=== PATIENT | male | born 1955 | race Two or more races ===

== ENCOUNTER 2025-02-08 07:00 | Inpatient (IN) | payer OTHER ==
[~2025-02-08] VITALS: Ht 170.2 cm; Wt 81.6 kg
[2025-02-08] MEDS ORDERED: JARDIANCE25 MG PO (08:13)
[2025-02-08] MEDS ORDERED: GLIMEPIRIDE4 M1 PO (08:14)
[2025-02-08] MEDS ORDERED: METFORMIN HCL500 M3 PO (08:14)
[2025-02-08] MEDS ORDERED: ENALAPRIL MALEAT5 MG PO (08:14)
[2025-02-08] MEDS ORDERED: ROSUVASTATIN CA20 MG PO (08:14)
[2025-02-08 08:34] VITALS: BP 144/77
[2025-02-08 08:39] LABS: URINE APPEARANCE Clear; URINE BILIRRUBIN Negative (NEGATIVE); URINE BLOOD Negative; URINE COLOR Yellow; URINE KETONE Negative (NEGATIVE); URINE LEUKOCYTE Negative; URINE NITRATE Negative; URINE PROTEIN Negative (NEGATIVE); URINE UROBILINOGEN 0.2 E.U./dl
[2025-02-08 08:40] LABS: BASO % 0.7 % (0.1-1.2); EOS # 0.17 (0.04-0.54); EOS % 3.0 % (0.7-7.0); LYMPH # 2.02 (1.18-3.74); LYMPH % 35.6 % (19.3-53.1); MEAN PLATELET VOLUME 9.00 fl (9.4-12.4); MONO # 0.61 (0.24-0.82); MONO % 10.8 % (4.7-12.5); NEUT # 2.82 (1.56-6.13); NEUT % 49.7 % (34.0-71.1); RED CELL DISTRIBUTION WIDTH 13.4 % (11.6-14.4)
[2025-02-08 08:43] LABS: URINE BACTERIA 8.3 uL (0.0-1933); URINE EPITHELIAL CELLS 3.3 uL (0.0-38.8); URINE WBC 2.1 uL (0.0-23.2)
[2025-02-08 09:01] LABS: URINE CAST 0.29 uL (0.0-1.40); URINE GLUCOSE >=1000 MG/DL (NEGATIVE); URINE RBC 1.0 uL (0.0-20.8)
[2025-02-08 09:27] LABS: INR 0.98
[2025-02-08 09:30] LABS: ALT/SGPT 22.0 U/L (12-78); AST/SGOT 17.0 U/L (15-37); BILIRUBIN TOTAL 0.82 mg/dL (0.3-1.2); BUN CREA RATIO 17.0 (7.0-25.0); CREATININE SERUM 0.84 mg/dL (0.70-1.30); GFR 90.33; GLOBULINA 2.9 G/DL (2.4-3.5); GLUCOSE FASTING 113.0 mg/dL (65-100); OSMOLALITY SERUM 283.0 MOSM/KG (275-295)
[2025-02-10] MEDS ORDERED: CEFAZOLIN SODIUM 1,000 MG VIAL ONE (06:52)
[2025-02-10] MEDS ORDERED: METRONIDAZOLE/SODIUM CHLORIDE 500 MG/100 ML PIGGYBACK IV ONE ×2 (06:53→08:45)
[2025-02-10] MEDS ORDERED: SUGAMMADEX SODIUM 200 MG/2 ML VIAL IV ONE (08:42)
[2025-02-10] MEDS ORDERED: CEFAZOLIN SODIUM 1,000 MG VIAL IV ONE (08:45)
[2025-02-10] MEDS ORDERED: ENOXAPARIN SODIUM 40 MG/0.4 ML SYRINGE SUBCUTANEO SCH (09:38)
[2025-02-10] MEDS ORDERED: ACETAMINOPHEN 500 MG GEL..CAP PO SCH (09:39)
[2025-02-10] MEDS ORDERED: MORPHINE SULFATE 4 MG/ML CARTRIDGE IV PRN (09:45)
[2025-02-10] MEDS ORDERED: MORPHINE SULFATE 4 MG/ML VIAL IV ONE (11:30)
[2025-02-10 12:30] VITALS: BP 114/66; O2SAT 94
[2025-02-10] MEDS ORDERED: INSULIN LISPRO 1,000 UNIT/10 ML UNITS SUBCUTANEO PRN (13:00)
[2025-02-10] MEDS ORDERED: DEXTROSE 50 % IN WATER 0.5 G/ML VIAL IV PRN (13:00)
[2025-02-10] MEDS ORDERED: ENALAPRILAT DIHYDRATE 1.25 MG/ML VIAL IV PRN (13:00)
[2025-02-10] MEDS ORDERED: ROSUVASTATIN CALCIUM 20 MG TABLET PO SCH (17:00)
[2025-02-10 17:01] VITALS: BP 123/74; O2SAT 95
[2025-02-11 01:55] VITALS: BP 109/70; O2SAT 96
[2025-02-11 08:00] VITALS: BP 138/73; O2SAT 95
[2025-02-11] MEDS ORDERED: ENALAPRIL MALEATE 5 MG TABLET PO SCH (09:00)
[2025-02-11 18:44] VITALS: BP 122/72; O2SAT 96
[2025-02-12] VITALS: BP 123/67; O2SAT 98
== END 2025-02-12 12:18 | disposition home or self-care (01) | DRG 331 ==
LOC: O/R 02-10 06:00 → SURH 02-10 06:00
PROVIDERS: ADMIT Surgery; ATTEND Surgery
PROC: 0DTF4ZZ Resection of Right Large Intestine, Percutaneous Endoscopic Approach (ICD-10-PCS; principal; 2025-02-10 10:30)
DX: K63.5 Polyp of colon (principal)